=== PATIENT | female | born 1980 | race Asian ===

== ENCOUNTER 2023-12-19 11:50 | Emergency (ER) | payer BC ==
[~2023-12-19] VITALS: Ht 162.6 cm; Wt 97.0 kg
[2023-12-19 12:01] VITALS: O2SAT 99
[2023-12-19] MEDS: SODIUM CHLORIDE 0.9% 1,000 ML IV ONE (12:45)
[2023-12-19] MEDS: MECLIZINE 25MG TABLET PO ONE (12:45)
[2023-12-19] MEDS: AMLODIPINE 10MG TABLET PO ONE (12:45)
[2023-12-19 12:57] LABS: BASOPHILS % 0.9 % (0.0-2.0); EOSINOPHILS % 4.8 % (0.0-5.0); HEMATOCRIT. 39.6 % (36.0-48.0); LYMPHOCYTES % 29.5 % (20.0-50.0); MEAN CORPUSCULAR HEMOGLOBIN 26.5 pg (28.0-32.0); MEAN CORPUSCULAR HGB CONC 32.7 g/dL (31.0-37.0); MEAN PLATELET VOLUME 8.9 fl (7.4-10.4); MONOCYTES % 6.7 % (2.0-8.0); NEUTROPHILS % 58.1 % (40.0-76.0); PLATELET 261 x1000/uL (130-400); RED BLOOD CELL COUNT 4.89 mill/uL (4.2-5.4); RED CELL DISTRIBUTION WIDTH 14.5 % (11.6-14.6)
[2023-12-19 13:10] LABS: CLARITY URINE CLEAR (CLEAR); COLOR URINE YELLOW (YELLOW); GLUCOSE URINE NEGATIVE (NEGATIVE); KETONES URINE NEGATIVE (NEGATIVE); LEUKOCYTE ESTERASE URINE NEGATIVE (NEGATIVE); NITRITE URINE NEGATIVE (NEGATIVE); OCCULT BLOOD URINE NEGATIVE (NEGATIVE); PH URINE 5.5 (4.5-8.0); PROTEIN URINE NEGATIVE (NEGATIVE); SPECIFIC GRAVITY URINE 1.006 (1.005-1.030); UROBILINOGEN URINE 0.2 E.U./dL (0.2-1.0)
[2023-12-19 13:24] LABS: ALANINE AMINOTRANSFERASE 15 IU/L (10-49); ALBUMIN 4.4 g/dL (3.2-4.8); ASPARTATE AMINOTRANSFERASE 19 IU/L (<34); BILIRUBIN TOTAL 0.4 mg/dL (0.1-1.0); CALCIUM 8.9 mg/dL (8.7-10.4); CARBON DIOXIDE 27 mEq/L (21-32); CHLORIDE 107 mEq/L (98-107); CREATININE 0.8 mg/dL (0.6-1.0); GLUCOSE 102 mg/dL (70-105); POTASSIUM 4.2 mEq/L (3.5-5.1); PROTEIN TOTAL 8.6 g/dL (6.0-8.3); SODIUM 140 mEq/L (136-145); UREA NITROGEN BLOOD 14 mg/dL (9-23)
[2023-12-19 13:25] LABS: HCG SCREEN NEGATIVE
[2023-12-19 13:34] LABS: TROPONIN I HIGH SENSITIVITY < 4 ng/L (3.0-34)
[2023-12-19] MEDS ORDERED: MECL-299 MT (14:36)
[2023-12-19 15:11] VITALS: BP 135/71; PULSE 78; RESP 16; TEMP 98.2
== END 2023-12-19 15:17 | disposition home or self-care (01) ==
LOC: ER 12:40
DX: R42 Dizziness and giddiness (principal); I10 Essential (primary) hypertension; Z98.890 Other specified postprocedural states
CPT/HCPCS: 80053; 81003; 84703; 85025; 84484; 36415; 70450; 93005; 96360; 99284; J8597; J7030; Z7610 ×3

== ENCOUNTER → 2024-05-08 | Outpatient (CLI) | payer BC ==
[~2024-05-08] MED LIST: MECL-299 MT
[2024-05-08 10:20] LABS: DIFFERENTIAL COMMENT 0; HEMATOCRIT. 41.4 % (36.0-48.0); HEMOGLOBIN. 12.9 g/dL (12.0-16.0); LYMPHOCYTES % 28.7 % (20.0-50.0); MEAN CORPUSCULAR HEMOGLOBIN 24.9 pg (28.0-32.0); MEAN CORPUSCULAR HGB CONC 31.1 g/dL (31.0-37.0); MONOCYTES % 5.6 % (2.0-8.0); NEUTROPHILS % 59.7 % (40.0-76.0); PLATELET 243 x1000/uL (130-400); RED BLOOD CELL COUNT 5.17 mill/uL (4.2-5.4); RED CELL DISTRIBUTION WIDTH 14.6 % (11.6-14.6); WHITE BLOOD COUNT 6.5 x1000/uL (4.5-11.0)
[2024-05-08 10:30] LABS: CARBON DIOXIDE 25 mEq/L (21-32); CHLORIDE 107 mEq/L (98-107); POTASSIUM 3.9 mEq/L (3.5-5.1); SODIUM 139 mEq/L (136-145)
[2024-05-08 10:31] LABS: CALCIUM 8.7 mg/dL (8.7-10.4)
[2024-05-08 10:35] LABS: CREATININE 0.9 mg/dL (0.6-1.0); GLUCOSE 88 mg/dL (70-105); IRON 48 ug/dL (50-170)
[2024-05-08 10:36] LABS: TRIGLYCERIDE 83 mg/dL (0-150); UREA NITROGEN BLOOD 16 mg/dL (9-23)
[2024-05-08 10:37] LABS: ALANINE AMINOTRANSFERASE 19 IU/L (10-49); ALBUMIN 4.3 g/dL (3.2-4.8); ASPARTATE AMINOTRANSFERASE 23 IU/L (<34); LDL CHOLESTEROL 155 mg/dL (5-100)
[2024-05-08 10:38] LABS: BILIRUBIN TOTAL 0.4 mg/dL (0.1-1.0); CHOLESTEROL 213 mg/dL (<200); HDL CHOLESTEROL 57 mg/dL (>65); PROTEIN TOTAL 8.1 g/dL (6.0-8.3); TOTAL IRON BINDING CAPACITY 363 ug/dl (250-425)
[2024-05-08 10:39] LABS: THYROID STIMULATING HORMONE 1.06 uIU/mL (0.55-4.78)
[2024-05-08 11:04] LABS: CLARITY URINE CLEAR (CLEAR); COLOR URINE YELLOW (YELLOW); GLUCOSE URINE NEGATIVE (NEGATIVE); KETONES URINE NEGATIVE (NEGATIVE); LEUKOCYTE ESTERASE URINE TRACE (NEGATIVE); NITRITE URINE NEGATIVE (NEGATIVE); OCCULT BLOOD URINE TRACE (NEGATIVE); PH URINE 5.5 (4.5-8.0); PROTEIN URINE NEGATIVE (NEGATIVE); UROBILINOGEN URINE 0.2 E.U./dL (0.2-1.0)
[2024-05-08 11:43] LABS: VITAMIN B12 SERUM 849 pg/mL (211-911)
[2024-05-08 11:44] LABS: FERRITIN 71 ng/mL (10-291)
[2024-05-08 12:05] LABS: MUCUS URINE 1+ /lpf (< = 2+); SQUAMOUS EPITHELIAL CELL URINE 3+ /lpf (RARE/1+)
[2024-05-08 12:06] LABS: CALCIUM OXALATE CRYSTALS URINE 1+ /lpf; RBC URINE 0-2 /hpf (0-2)
[2024-05-08 12:07] LABS: BACTERIA URINE 2+
[2024-05-09 07:09] LABS: FOLICLE STIMULATING HORMONE 53.1 mIU/mL (.)
== END | disposition home or self-care (01) ==
LOC: LAB 09:20
PROVIDERS: ATTEND Internal Medicine Geriatric Medicine
DX: Z00.01 Encounter for general adult medical examination with abnormal findings (principal); I10 Essential (primary) hypertension; N39.0 Urinary tract infection, site not specified
CPT/HCPCS: 36415; 80053; 80061; 81003; 82306; 82607; 82728; 82746; 83001; 83036; 83540; 83550; 84443; 85025; 86592

== ENCOUNTER → 2024-05-25 | Outpatient (CLI) | payer BC | END | disposition home or self-care (01) | LOC: CARD 06:12 | PROVIDERS: ATTEND Internal Medicine Geriatric Medicine | DX: Z12.31 Encounter for screening mammogram for malignant neoplasm of breast (principal); I10 Essential (primary) hypertension; R60.9 Edema, unspecified; M79.662 Pain in left lower leg; M79.661 Pain in right lower leg | CPT/HCPCS: 77063; 77067; 93306; 93970 ==

== ENCOUNTER → 2024-07-17 | Outpatient (CLI) | payer BC ==
[2024-07-17 11:47] LABS: CARBON DIOXIDE 28 mEq/L (21-32); CHLORIDE 108 mEq/L (98-107); POTASSIUM 4.2 mEq/L (3.5-5.1); SODIUM 141 mEq/L (136-145)
[2024-07-17 11:49] LABS: DIFFERENTIAL COMMENT 0; EOSINOPHILS % 5.4 % (0.0-5.0); HEMATOCRIT. 40.9 % (36.0-48.0); HEMOGLOBIN. 12.9 g/dL (12.0-16.0); LYMPHOCYTES % 33.2 % (20.0-50.0); MEAN CORPUSCULAR HEMOGLOBIN 25.1 pg (28.0-32.0); MEAN CORPUSCULAR HGB CONC 31.5 g/dL (31.0-37.0); MEAN CORPUSCULAR VOLUME 79.6 fL (81.0-99.0); MONOCYTES % 7.4 % (2.0-8.0); PLATELET 231 x1000/uL (130-400); RED BLOOD CELL COUNT 5.15 mill/uL (4.2-5.4); WHITE BLOOD COUNT 6.2 x1000/uL (4.5-11.0)
[2024-07-17 11:52] LABS: CREATININE 0.8 mg/dL (0.6-1.0); GLUCOSE 91 mg/dL (70-105)
[2024-07-17 11:53] LABS: LDL CHOLESTEROL 126 mg/dL (5-100); TRIGLYCERIDE 92 mg/dL (0-150); UREA NITROGEN BLOOD 17 mg/dL (9-23)
[2024-07-17 11:54] LABS: ALANINE AMINOTRANSFERASE 14 IU/L (10-49); ASPARTATE AMINOTRANSFERASE 17 IU/L (<34); CHOLESTEROL 190 mg/dL (<200); HDL CHOLESTEROL 50 mg/dL (>65)
[2024-07-17 11:55] LABS: BILIRUBIN TOTAL 0.6 mg/dL (0.1-1.0); PROTEIN TOTAL 7.6 g/dL (6.0-8.3); T4 FREE 1.49 ng/dL (0.89-1.76)
[2024-07-17 11:57] LABS: THYROID STIMULATING HORMONE 0.68 uIU/mL (0.55-4.78)
[2024-07-18 10:08] LABS: *T3 UPTAKE 30 % (24-39)
== END | disposition home or self-care (01) ==
LOC: LAB 11:02
PROVIDERS: ATTEND Obstetrics & Gynecology Obstetrics
DX: Z13.220 Encounter for screening for lipoid disorders (principal); Z13.0 Encounter for screening for diseases of the blood and blood-forming organs and certain disorders involving the immune mechanism; Z13.1 Encounter for screening for diabetes mellitus; Z13.29 Encounter for screening for other suspected endocrine disorder; Z13.228 Encounter for screening for other metabolic disorders; E28.8 Other ovarian dysfunction
CPT/HCPCS: 36415; 80053; 80061; 82951; 83036; 83520; 83735; 84439; 84443; 84479; 85025

== ENCOUNTER → 2024-10-24 | Day surgery (SDC) | payer BC ==
[~2024-10-24] VITALS: Ht 160 cm; Wt 98.4 kg
[~2024-10-24] MED LIST changes: +ASCO500C18 PO; +FENTANYL CITRATE/PF 50MCG/ML 2ML VIAL ONE; +HYDROMORPHONE HCL/PF 1MG/ML INJ IV PRN; +LOSA1TAB37 PO; +MIDAZOLAM HCL 2 MG/2 ML VIAL ONE; +ONDANSETRON HCL 4MG/2ML INJ IV PRN; +ONDANSETRON HCL 4MG/2ML INJ ONE; +PROPOFOL 200MG/20ML VIAL IV ONE
[2024-10-24 07:40] LABS: CLARITY URINE CLOUDY (CLEAR); COLOR URINE YELLOW (YELLOW); GLUCOSE URINE NEGATIVE (NEGATIVE); KETONES URINE NEGATIVE (NEGATIVE); LEUKOCYTE ESTERASE URINE 3+ (NEGATIVE); NITRITE URINE NEGATIVE (NEGATIVE); OCCULT BLOOD URINE TRACE (NEGATIVE); PH URINE 5.5 (4.5-8.0); PROTEIN URINE NEGATIVE (NEGATIVE); SPECIFIC GRAVITY URINE 1.018 (1.005-1.030); UROBILINOGEN URINE 0.2 E.U./dL (0.2-1.0)
[2024-10-24 07:45] LABS: POTASSIUM 4.7 mEq/L (3.5-5.1)
[2024-10-24 07:46] LABS: UCG SCREEN NEGATIVE
[2024-10-24] MEDS: LACTATED RINGERS 1,000 ML IV SCH (08:11)
[2024-10-24 08:21] LABS: BASOPHILS % 0.8 % (0.0-2.0); HEMATOCRIT. 40.5 % (36.0-48.0); HEMOGLOBIN. 12.8 g/dL (12.0-16.0); LYMPHOCYTES % 31.4 % (20.0-50.0); MEAN CORPUSCULAR HEMOGLOBIN 25.6 pg (28.0-32.0); MEAN CORPUSCULAR HGB CONC 31.7 g/dL (31.0-37.0); MEAN CORPUSCULAR VOLUME 80.9 fL (81.0-99.0); MEAN PLATELET VOLUME 8.8 fl (7.4-10.4); MONOCYTES % 6.8 % (2.0-8.0); PLATELET 229 x1000/uL (130-400); RED BLOOD CELL COUNT 5.01 mill/uL (4.2-5.4); WHITE BLOOD COUNT 6.8 x1000/uL (4.5-11.0)
[2024-10-24] MEDS: ACETAMINOPHEN 1000MG/100ML 100 ML IV NR (09:15)
[2024-10-24 09:17] LABS: BACTERIA URINE 1+; SQUAMOUS EPITHELIAL CELL URINE 1+ /lpf (RARE/1+)
[2024-10-24 09:18] LABS: RBC URINE 0-2 /hpf (0-2); WBC URINE 50-100 /hpf (0-2)
== END | disposition home or self-care (01) ==
LOC: OR 07:10
PROVIDERS: ATTEND Obstetrics & Gynecology Obstetrics
DX: N84.0 Polyp of corpus uteri (principal); N84.1 Polyp of cervix uteri; I10 Essential (primary) hypertension; R93.89 Abnormal findings on diagnostic imaging of other specified body structures; Z79.899 Other long term (current) drug therapy; Z88.0 Allergy status to penicillin; Z98.890 Other specified postprocedural states
CPT/HCPCS: 58558; 93005; 80048; 81003; 81025; 85025; 87086; 36415; 88305; J3010; J2250; J2405; J2704; J0131

== ENCOUNTER → 2025-01-09 | Outpatient (CLI) | payer BC ==
[~2025-01-09] MED LIST changes: -ASCO500C18 PO; -FENTANYL CITRATE/PF 50MCG/ML 2ML VIAL ONE; -HYDROMORPHONE HCL/PF 1MG/ML INJ IV PRN; -MECL-299 MT; -MIDAZOLAM HCL 2 MG/2 ML VIAL ONE; -ONDANSETRON HCL 4MG/2ML INJ IV PRN; -ONDANSETRON HCL 4MG/2ML INJ ONE; -PROPOFOL 200MG/20ML VIAL IV ONE
[2025-01-09 12:10] LABS: BASOPHILS % 0.8 % (0.0-2.0); EOSINOPHILS % 5.2 % (0.0-5.0); HEMATOCRIT. 42.6 % (36.0-48.0); HEMOGLOBIN. 13.6 g/dL (12.0-16.0); LYMPHOCYTES % 36.1 % (20.0-50.0); MEAN CORPUSCULAR HEMOGLOBIN 25.7 pg (28.0-32.0); MEAN CORPUSCULAR HGB CONC 31.9 g/dL (31.0-37.0); MEAN CORPUSCULAR VOLUME 80.3 fL (81.0-99.0); MEAN PLATELET VOLUME 8.5 fl (7.4-10.4); MONOCYTES % 8.1 % (2.0-8.0); NEUTROPHILS % 49.8 % (40.0-76.0); PLATELET 271 x1000/uL (130-400); RED CELL DISTRIBUTION WIDTH 14.2 % (11.6-14.6); WHITE BLOOD COUNT 7.9 x1000/uL (4.5-11.0)
[2025-01-09 12:20] LABS: CARBON DIOXIDE 28 mEq/L (21-32); CHLORIDE 104 mEq/L (98-107); POTASSIUM 4.2 mEq/L (3.5-5.1); SODIUM 139 mEq/L (136-145)
[2025-01-09 12:21] LABS: CALCIUM 9.1 mg/dL (8.7-10.4)
[2025-01-09 12:25] LABS: CREATININE 0.9 mg/dL (0.6-1.0); GLUCOSE 81 mg/dL (70-105)
[2025-01-09 12:26] LABS: LDL CHOLESTEROL 122 mg/dL (5-100); TRIGLYCERIDE 216 mg/dL (0-150); UREA NITROGEN BLOOD 15 mg/dL (9-23)
[2025-01-09 12:27] LABS: ALANINE AMINOTRANSFERASE 17 IU/L (10-49); ALBUMIN 4.2 g/dL (3.2-4.8); ASPARTATE AMINOTRANSFERASE 18 IU/L (<34); CHOLESTEROL 188 mg/dL (<200)
[2025-01-09 12:28] LABS: BILIRUBIN TOTAL 0.4 mg/dL (0.1-1.0); HDL CHOLESTEROL 43 mg/dL (>65); PROTEIN TOTAL 8.4 g/dL (6.0-8.3)
[2025-01-09 12:31] LABS: THYROID STIMULATING HORMONE 0.67 uIU/mL (0.55-4.78)
== END | disposition home or self-care (01) ==
LOC: LAB 11:46
PROVIDERS: ATTEND Internal Medicine Geriatric Medicine
DX: I10 Essential (primary) hypertension (principal); E66.9 Obesity, unspecified
CPT/HCPCS: 36415; 80053; 80061; 83036; 84443; 85025